=== PATIENT | female | born 1965 | race Caucasian/White ===

== ENCOUNTER 2017-04-06 14:30 | Emergency (ER) | payer OTHER ==
[~2017-04-06 14:30] MED LIST: B COTAB7 PO; CALC1TAB53 PO; CLON.5 PO; DICY10CA13 PO; DUONI NEB; HYDR-3533 PO; METH500T3 PO; MOBI7.5T PO; MULTCAP2 PO; OXYC1SOL5 PO; RANI150T PO; VENL37.5 PO; ZOFR8TAB PO
[2017-04-06 14:38] VITALS: BP 159/97; PULSE 99; RESP 24; TEMP 97.8; O2SAT 96
[2017-04-06] MEDS ORDERED: SODIUM CHLOR 0.9% 1000 ML INJ 1,000 ML IV SCH (14:55)
[2017-04-06] MEDS ORDERED: ONDANSETRON HCL 4 MG/2 ML VIAL IVP ONE (15:00)
[2017-04-06 15:01] VITALS: RESP 22; O2SAT 96
--- NOTE | 2017-04-06 15:28 | PD ---
HPI Chief Complaint: Cardiac Complaint Time Seen by Provider: 15:20 Travel History International Travel<30 days: No Contact w/Intl Traveler<30days: No Traveled to known affect area: No History of Present Illness HPI 51-year-old female that presents to the ED for evaluation of possible OD. Patient apparently was found unresponsive by bystanders. Ambulance and fire [facility] were called. Apparently they attempted to do an IV as well as started chest compressions because she wouldn't be responsive to them. Patient was arousable afterwards and became somewhat agitated so she had to be restrained. Patient states that she's been drinking a lot today and she was "hanging out with her girlfriends ". Per patient she was also smoking marijuana and she took all her medications as prescribed by her doctor. Per patient she was in the sun and she just fell asleep on the floor. Per patient she denies trying to kill herself. Per patient she drinks as much as she can. She denies any suicidal or homicidal ideation. She denies any other substance abuse. She states that she feels fine other than having some chronic pain states that is not changed from prior. She denies any chest pain or shortness of breath. She denies any fevers chills or sweats. No urinary or bowel movement issues. No vomiting. Per patient she needs is some fluids and for us to allow her to sleep it off. PFSH Past Medical History Asthma: Yes Autoimmune Disease: No Blood Disorders: No Anxiety: Yes Depression: No Heart Rhythm Problems: No Cancer: Yes (Cervical) Cardiovascular Problems: Yes (HX TACHYCARDIA) High Cholesterol: No Chemotherapy: No Chest Pain: No Congestive Heart Failure: No COPD: Yes Diabetes: No Diminished Hearing: No Diverticulitis: Yes Endocrine: No Gastrointestinal Disorders: Yes (DIVERTICULOSIS, IBS, GERD) Genitourinary: No Hepatitis: Yes (C) Hiatal Hernia: No Immune Disorder: No Implanted Vascular Access Dvce: Yes Musculoskeletal: Yes (ARTHRITIS, (RA & OA)) Neurologic: Yes (VERTIGO, BENIGN CEREBRAL MASS, HEADACHES, S/P HEAD TRAUMA) Psychiatric: Yes (PTSD) Reproductive: Yes (CERVICAL DYSPLASIA) Respiratory: Yes (ASTHMA COPD) Immunizations Current: Yes Radiation Therapy: No Sleep Apnea: No Thyroid Disease: No Tetanus Vaccination: < 5 Years Influenza Vaccination: No ?: Not Menopausal: Yes : 5 Para: 3 Miscarriage: 2 Ectopic : Yes (1988) Past Surgical History Abdominal Surgery: No AICD: No Body Medical Devices: HARDWARE RIGHT FOREARM Cardiac Surgery: No Ear Surgery: No Endocrine Surgery: No Eye Surgery: No Genitourinary Surgery: No Gynecologic Surgery: Yes (C SECTION, TUBAL LIG. CONE BIOPSY) Hysterectomy: Yes Joint Replacement: No Neurologic Surgery: No Oral Surgery: Yes (T & A) Pacemaker: No Thoracic Surgery: No Tonsillectomy: Yes Other Surgery: Yes (Cervix) Social History Alcohol Use: Yes (BEERS DAILY) Tobacco Use: Yes (11/10 PPD) Substance Use: Yes (WEEDS) Allergies-Medications (Allergen,Severity, Reaction): Coded Allergies: Lactose (Verified Allergy, Severe, GI SXS, 04/06/17) Paroxetine (Verified Allergy, Severe, SEVERES HEADACHES, 04/06/17) Paxil (Verified Allergy, Severe, HEADACHES, 04/06/17) Sertraline (Verified Allergy, Severe, SEVERE HEADACHES, 04/06/17) *MDRO Multi-Drug Resistant Organism (Verified Adverse Reaction, Unknown, ) MRSA (finger wound) - 2002, (Surveillance cx) - 2004, (foot wound) - 2005 Reported Meds & Prescriptions Reported Meds & Active Scripts Active Reported Effexor (Venlafaxine HCl) 37.5 Mg Tab 37.5 Mg PO DAILY Klonopin (Clonazepam) 0.5 Mg Tab 0.5 Mg PO DAILY Review of Systems Except as stated in HPI: all other systems reviewed are Neg Physical Exam Narrative GENERAL: SKIN: Warm and dry. HEAD: Atraumatic. Normocephalic. EYES: Pupils equal and round. No scleral icterus. No injection or drainage. ENT: No nasal bleeding or discharge. Mucous membranes pink and moist. tongue is midline. No uvula deviation. NECK: Trachea midline. No JVD. CARDIOVASCULAR: Regular rate and rhythm. No murmurs, S3, S4. RESPIRATORY: No accessory muscle use. Clear to auscultation. Breath sounds equal bilaterally. GASTROINTESTINAL: Abdomen soft, non-tender, nondistended. Hepatic and splenic margins not palpable. MUSCULOSKELETAL: Extremities without clubbing, cyanosis, or edema. No obvious deformities. Full ROM of the upper and lower extremities. 2+ pulses. NEUROLOGICAL: Awake and alert. No obvious cranial nerve deficits. Motor grossly within normal limits. Five out of 5 muscle strength in the arms and legs. Normal speech. PSYCHIATRIC: Intoxicated mood and affect; insight and judgment normal. Data Data Last Documented VS Vital Signs Date Time Temp Pulse Resp B/P Pulse Ox O2 Delivery O2 Flow Rate FiO2 04/06/17 16:00 89 18 158/86 97 Room Air 04/06/17 14:38 97.8 Orders Electrocardiogram (04/06/17 ) Complete Blood Count With Diff (04/06/17 14:55) Comprehensive Metabolic Panel (04/06/17 14:55) Urinalysis - C+S If Indicated (04/06/17 14:55) Iv Access Insert/Monitor (04/06/17 14:55) Ecg Monitoring (04/06/17 14:55) Oximetry (04/06/17 14:55) Ondansetron Inj (Zofran Inj) (04/06/17 15:00) Sodium Chlor 0.9% 1000 Ml Inj (Ns 1000 M (04/06/17 14:55) Drug Screen, Random Urine (04/06/17 14:55) Alcohol (Ethanol) (04/06/17 14:55) Salicylates (Aspirin) (04/06/17 14:55) Tylenol (Acetaminophen) (04/06/17 14:55) Ed Urine Pregnancytest Poc (04/06/17 14:55) Troponin I (04/06/17 14:55) Chest, Single Ap (04/06/17 ) Creatine Kinase (Cpk) (04/06/17 16:24) Ct Brain W/O Iv Contrast(Rout) (04/06/17 ) Labs Laboratory Tests Test 04/06/17 15:00 White Blood Count 6.4 TH/MM3 Red Blood Count 3.81 MIL/MM3 Hemoglobin 13.2 GM/DL Hematocrit 38.4 % Mean Corpuscular Volume 100.9 FL Mean Corpuscular Hemoglobin 34.5 PG Mean Corpuscular Hemoglobin 34.2 % Concent Red Cell Distribution Width 13.3 % Platelet Count 149 TH/MM3 Mean Platelet Volume 9.7 FL Neutrophils (%) (Auto) 66.7 % Lymphocytes (%) (Auto) 22.4 % Monocytes (%) (Auto) 8.2 % Eosinophils (%) (Auto) 2.3 % Basophils (%) (Auto) 0.4 % Neutrophils # (Auto) 4.3 TH/MM3 Lymphocytes # (Auto) 1.4 TH/MM3 Monocytes # (Auto) 0.5 TH/MM3 Eosinophils # (Auto) 0.1 TH/MM3 Basophils # (Auto) 0.0 TH/MM3 CBC Comment DIFF FINAL Differential Comment Sodium Level 138 MEQ/L Potassium Level 4.4 MEQ/L Chloride Level 102 MEQ/L Carbon Dioxide Level 29.8 MEQ/L Anion Gap 6 MEQ/L Blood Urea Nitrogen 7 MG/DL Creatinine 0.57 MG/DL Estimat Glomerular Filtration 112 ML/MIN Rate Random Glucose 155 MG/DL Calcium Level 8.3 MG/DL Total Bilirubin 0.2 MG/DL Aspartate Amino Transf 34 U/L (AST/SGOT) Alanine Aminotransferase 27 U/L (ALT/SGPT) Alkaline Phosphatase 98 U/L Total Creatine Kinase 99 U/L Troponin I LESS THAN 0.02 NG/ML Total Protein 7.2 GM/DL Albumin 3.5 GM/DL Salicylates Level 4.2 MG/DL Acetaminophen Level LESS THAN 2.0 MCG/ML Ethyl Alcohol Level LESS THAN 3 MG/DL MDM Medical Decision Making Medical Screen Exam Complete: Yes Emergency Medical Condition: Yes Medical Record Reviewed: Yes Interpretation(s) CBC & BMP Diagram 04/06/17 15:00 tox negative troponin and CK negative EKG shows sinus rhythm with no sign of acute ischemia or arrhythmia. Last Impressions Chest X-Ray 04/06/17 0000 Signed Impressions: Service Date/Time: Thursday, April 06, 2017 15:00 - CONCLUSION: No acute disease. Isaiah Pickard MD Differential Diagnosis Alcohol intoxication versus substance abuse versus OD versus chest pain Narrative Course 51-year-old female that presents to the ED for evaluation of possible OD. Patient was properly examined and was found to have signs and symptoms consistent with appears to be acute intoxication. No sign of acute medical distress. Patient states that she did not do this in an attempt to hurt herself. Per patient she did drink a lot of alcohol today as well as marijuana and was on the sun all day. Per patient she feels dehydrated. At this time had recommend labs and imaging. Patient was given IV fluids and Zofran. Labs and imaging showed no sign of acute disease. I was informed by ED nurse that patient did not want to do a CAT scan of the head as well as and did not want to give us a urine sample. Patient also wants to leave after being here for 2 hours. Patient does appear to be sober and symptoms to be capable of making her own decisions. At this time I will have the patient sign out AMA. AMA: The risks of leaving against medical advice without further evaluation treatment were discussed with the patient. These risks include cardiac dysfunction, cardiac dysrhythmia, possible heart attack, possible stroke or . The patient indicated understanding of these risks and appeared to have the capacity to make this decision. Diagnosis Primary Impression: Intoxication by drug Qualified Code: F19.929 - Intoxication by drug, with unspecified complication Patient Instructions: General Instructions Additional Instructions: Follow with PCP. See ED worsening symptoms. Stop abusing alcohol. Med/Other Pt SpecificInfo: No Change to Meds Disposition: 07 AGAINST MEDICAL ADVICE Condition: Stable Stephen Mane April 06, 2017 15:28
[2017-04-06] MEDS ORDERED: CLON.5 PO (15:32)
[2017-04-06] MEDS ORDERED: VENL37.5 PO (15:32)
[2017-04-06 15:37] LABS: AUTOMATED NEUTROPHIL # 4.3 TH/MM3 (1.8-7.7); BASOPHIL % 0.4 % (0.0-2.0); EOSINOPHIL # 0.1 TH/MM3 (0-0.4); EOSINOPHIL % 2.3 % (0.0-4.0); HEMATOCRIT 38.4 % (35.0-46.0); HEMO FLAGS DIFF FINAL; LYMPH % 22.4 % (9.0-44.0); LYMPHOCYTE # 1.4 TH/MM3 (1.0-4.8); MEAN CELL VOLUME 100.9 FL (80.0-100.0); MEAN CORPUSCULAR HEMOGLOBIN 34.5 PG (27.0-34.0); MEAN CORPUSCULAR HGB CONC 34.2 % (32.0-36.0); MONO % 8.2 % (0.0-8.0); NEUT % 66.7 % (16.0-70.0); PLATELET COUNT 149 TH/MM3 (150-450); RED BLOOD COUNT 3.81 MIL/MM3 (4.00-5.30); RED CELL DISTRIBUTION WIDTH 13.3 % (11.6-17.2); WHITE BLOOD COUNT 6.4 TH/MM3 (4.0-11.0)
--- NOTE | 2017-04-06 15:40 | RADRPT ---
EXAM DATE/TIME: 04/06/2017 15:00 [facility] COMPARISON: CHEST SINGLE AP, November 19, 2014, 15:10. INDICATIONS : Chest pain. MEDICAL HISTORY : Chronic obstructive pulmonary disease. SURGICAL HISTORY : Hysterectomy. ENCOUNTER: Initial ACUITY: 1 day PAIN SCORE: 5/10 LOCATION: Bilateral chest FINDINGS: A single view of the chest demonstrates the lungs to be symmetrically aerated without evidence of mas s, infiltrate or effusion. The cardiomediastinal contours are unremarkable. Osseous structures are intact. CONCLUSION: No acute disease. Isaiah Pickard MD on April 06, 2017 at 15:38 Board Certified Radiologist. This report was verified electronically.
[2017-04-06 16:00] VITALS: BP 158/86; PULSE 89; RESP 18; O2SAT 97
[2017-04-06 16:02] LABS: ACETAMINOPHEN LESS THAN 2.0 MCG/ML (10.0-30.0); ALKALINE PHOSPHATASE 98 U/L (45-117); TOTAL BILIRUBIN ADULT 0.2 MG/DL (0.2-1.0)
[2017-04-06 16:03] LABS: ALT (GPT) 27 U/L (10-53); ANION GAP 6 MEQ/L (5-15); AST (GOT) 34 U/L (15-37); BICARBONATE 29.8 MEQ/L (21.0-32.0); BLOOD UREA NITROGEN 7 MG/DL (7-18); CHLORIDE 102 MEQ/L (98-107); GLOMERULAR FILTRATION RATE 112 ML/MIN (>89); POTASSIUM 4.4 MEQ/L (3.5-5.1); SODIUM (NA) 138 MEQ/L (136-145)
--- NOTE | 2017-04-06 17:47 | PD ---
Data Data Last Documented VS Vital Signs Date Time Temp Pulse Resp B/P Pulse Ox O2 Delivery O2 Flow Rate FiO2 04/06/17 16:00 89 18 158/86 97 Room Air 04/06/17 14:38 97.8 Orders Electrocardiogram (04/06/17 ) Complete Blood Count With Diff (04/06/17 14:55) Comprehensive Metabolic Panel (04/06/17 14:55) Urinalysis - C+S If Indicated (04/06/17 14:55) Iv Access Insert/Monitor (04/06/17 14:55) Ecg Monitoring (04/06/17 14:55) Oximetry (04/06/17 14:55) Ondansetron Inj (Zofran Inj) (04/06/17 15:00) Sodium Chlor 0.9% 1000 Ml Inj (Ns 1000 M (04/06/17 14:55) Drug Screen, Random Urine (04/06/17 14:55) Alcohol (Ethanol) (04/06/17 14:55) Salicylates (Aspirin) (04/06/17 14:55) Tylenol (Acetaminophen) (04/06/17 14:55) Ed Urine Pregnancytest Poc (04/06/17 14:55) Troponin I (04/06/17 14:55) Chest, Single Ap (04/06/17 ) Creatine Kinase (Cpk) (04/06/17 16:24) Ct Brain W/O Iv Contrast(Rout) (04/06/17 ) Labs Laboratory Tests Test 04/06/17 15:00 White Blood Count 6.4 TH/MM3 Red Blood Count 3.81 MIL/MM3 Hemoglobin 13.2 GM/DL Hematocrit 38.4 % Mean Corpuscular Volume 100.9 FL Mean Corpuscular Hemoglobin 34.5 PG Mean Corpuscular Hemoglobin 34.2 % Concent Red Cell Distribution Width 13.3 % Platelet Count 149 TH/MM3 Mean Platelet Volume 9.7 FL Neutrophils (%) (Auto) 66.7 % Lymphocytes (%) (Auto) 22.4 % Monocytes (%) (Auto) 8.2 % Eosinophils (%) (Auto) 2.3 % Basophils (%) (Auto) 0.4 % Neutrophils # (Auto) 4.3 TH/MM3 Lymphocytes # (Auto) 1.4 TH/MM3 Monocytes # (Auto) 0.5 TH/MM3 Eosinophils # (Auto) 0.1 TH/MM3 Basophils # (Auto) 0.0 TH/MM3 CBC Comment DIFF FINAL Differential Comment Sodium Level 138 MEQ/L Potassium Level 4.4 MEQ/L Chloride Level 102 MEQ/L Carbon Dioxide Level 29.8 MEQ/L Anion Gap 6 MEQ/L Blood Urea Nitrogen 7 MG/DL Creatinine 0.57 MG/DL Estimat Glomerular Filtration 112 ML/MIN Rate Random Glucose 155 MG/DL Calcium Level 8.3 MG/DL Total Bilirubin 0.2 MG/DL Aspartate Amino Transf 34 U/L (AST/SGOT) Alanine Aminotransferase 27 U/L (ALT/SGPT) Alkaline Phosphatase 98 U/L Total Creatine Kinase 99 U/L Troponin I LESS THAN 0.02 NG/ML Total Protein 7.2 GM/DL Albumin 3.5 GM/DL Salicylates Level 4.2 MG/DL Acetaminophen Level LESS THAN 2.0 MCG/ML Ethyl Alcohol Level LESS THAN 3 MG/DL MDM Supervised Visit with DAMI: Yes Narrative Course The history, exam, and medical decision-making in the associated midlevel provider note were completed with my assistance. I reviewed and agree with the findings presented. I attest that I had a [id number] encounter with the patient on the same day, and personally performed and documented my assessment and findings in the medical record. *My assessment and Findings: This is a 51-year-old female who presents to the emergency department having been brought in under a suspected overdose. Here she's become increasingly clear. We did recommend her getting a CT scan to evaluate for possible intracranial hemorrhage given the circumstances of her being found her on clear. Patient refuses. She seems to have decision-making capacity and I don't think we can hold her against her will. Patient was discharged. Keiko Matthews MD April 06, 2017 17:47
--- NOTE | 2017-04-07 08:23 | EKG ---
Date Performed: 04/06/2017 Time Performed: 15:05:59 PTAGE: 51 years EKG: Sinus rhythm NORMAL ECG PREVIOUS TRACING : 11/30/2015 11.57 No significant change from previous tracing noted. DOCTOR: Anson Johnson Interpretating Date/Time 04/07/2017 08:22:38
== END 2017-04-06 17:45 | disposition left against medical advice (07) ==
LOC: NEPE 14:30
DX: F19.929 Other psychoactive substance use, unspecified with intoxication, unspecified (principal); F12.90 Cannabis use, unspecified, uncomplicated; F10.10 Alcohol abuse, uncomplicated; F17.200 Nicotine dependence, unspecified, uncomplicated; J44.9 Chronic obstructive pulmonary disease, unspecified; J45.909 Unspecified asthma, uncomplicated; R07.9 Chest pain, unspecified; Y90.0 Blood alcohol level of less than 20 mg/100 ml; Z79.899 Other long term (current) drug therapy; Z85.41 Personal history of malignant neoplasm of cervix uteri
CPT/HCPCS: 71010; 80053; 80307; 82550; 84484; 85025; 93005; 96361; 96374; 99285; J2405; J7030

== ENCOUNTER 2017-06-16 16:05 | Emergency (ER) | payer OTHER ==
[~2017-06-16] VITALS: Ht 162.6 cm; Wt 47.0 kg
[~2017-06-16 16:05] MED LIST changes: -B COTAB7 PO; -CALC1TAB53 PO; -DICY10CA13 PO; -DUONI NEB; -HYDR-3533 PO; -METH500T3 PO; -MOBI7.5T PO; -MULTCAP2 PO; -OXYC1SOL5 PO; -RANI150T PO; -ZOFR8TAB PO
[2017-06-16 16:28] VITALS: BP 116/72; PULSE 98; RESP 16; TEMP 98.7; O2SAT 97
[2017-06-16 16:31] VITALS: BP 116/72; PULSE 98; RESP 16; TEMP 98.7; O2SAT 97
--- NOTE | 2017-06-16 18:46 | PD ---
HPI Chief Complaint: OD/ Ingestion Time Seen by Provider: 16:34 Travel History International Travel<30 days: No Contact w/Intl Traveler<30days: No Traveled to known affect area: No History of Present Illness HPI This is a 51-year-old female who presents to the emergency department having used IV heroin recreationally and overdose. EMS came about 0.4 Narcan and she woke up. Currently patient feels back to normal and wants to leave. She says she used heroin because she has pain in her legs from where she scraped her legs on oyster beds. She was not trying to kill her self, she enjoys living, and is future oriented. She is given a try to move in with a friend of hers who doesn't use drugs to try to get clean. PFSH Past Medical History Asthma: Yes Autoimmune Disease: No Blood Disorders: No Anxiety: Yes Depression: No Heart Rhythm Problems: No Cancer: Yes (Cervical) Cardiovascular Problems: Yes (HX TACHYCARDIA) High Cholesterol: No Chemotherapy: No Chest Pain: No Congestive Heart Failure: No COPD: Yes Diabetes: No Diminished Hearing: No Diverticulitis: Yes Endocrine: No Gastrointestinal Disorders: Yes (DIVERTICULOSIS, IBS, GERD) Genitourinary: No Hepatitis: Yes (C) Hiatal Hernia: No Immune Disorder: No Implanted Vascular Access Dvce: Yes Musculoskeletal: Yes (ARTHRITIS, (RA & OA)) Neurologic: Yes (VERTIGO, BENIGN CEREBRAL MASS, HEADACHES, S/P HEAD TRAUMA) Psychiatric: Yes (PTSD) Reproductive: Yes (CERVICAL DYSPLASIA) Respiratory: Yes (ASTHMA COPD) Immunizations Current: Yes Radiation Therapy: No Sleep Apnea: No Thyroid Disease: No Tetanus Vaccination: > 5 Years Influenza Vaccination: No ?: Not Menopausal: Yes : 5 Para: 3 Miscarriage: 2 Ectopic : Yes (1988) Past Surgical History Abdominal Surgery: No AICD: No Body Medical Devices: HARDWARE RIGHT FOREARM Cardiac Surgery: No Ear Surgery: No Endocrine Surgery: No Eye Surgery: No Genitourinary Surgery: No Gynecologic Surgery: Yes (C SECTION, TUBAL LIG. CONE BIOPSY) Hysterectomy: Yes Joint Replacement: No Neurologic Surgery: No Oral Surgery: Yes (T & A) Pacemaker: No Thoracic Surgery: No Tonsillectomy: Yes Other Surgery: Yes (Cervix) Social History Alcohol Use: Yes (BEERS DAILY) Tobacco Use: Yes (1/2 PPD) Substance Use: Yes (WEED, OPIATES) Allergies-Medications (Allergen,Severity, Reaction): Coded Allergies: Lactose (Verified Allergy, Severe, GI SXS, 04/06/17) Paroxetine (Verified Allergy, Severe, SEVERES HEADACHES, 04/06/17) Paxil (Verified Allergy, Severe, HEADACHES, 04/06/17) Sertraline (Verified Allergy, Severe, SEVERE HEADACHES, 04/06/17) *MDRO Multi-Drug Resistant Organism (Verified Adverse Reaction, Unknown, ) MRSA (finger wound) - 2002, (Surveillance cx) - 2004, (foot wound) - 2005 Reported Meds & Prescriptions Reported Meds & Active Scripts Active Reported Effexor (Venlafaxine HCl) 37.5 Mg Tab 37.5 Mg PO DAILY Klonopin (Clonazepam) 0.5 Mg Tab 0.5 Mg PO DAILY Review of Systems Except as stated in HPI: all other systems reviewed are Neg Physical Exam Narrative GENERAL:Chronically unwell appearing female, thin SKIN: Scattered Ulcerations on the lower extremities with some purulent drainage and surrounding erythema. HEAD: Atraumatic. Normocephalic. EYES: Pupils equal and round. No injection or drainage. ENT: Moist mucous membranes NECK: Trachea midline. CARDIOVASCULAR: Regular rate and rhythm. No murmur appreciated. RESPIRATORY: Clear to auscultation. Breath sounds equal bilaterally. GASTROINTESTINAL: Abdomen soft, non-tender, nondistended. MUSCULOSKELETAL: No obvious deformities. NEUROLOGICAL: Awake and alert. No obvious cranial nerve deficits. Moving all extremities. PSYCHIATRIC: Appropriate mood and affect; insight and judgment normal. Data Data Last Documented VS Vital Signs Date Time Temp Pulse Resp B/P Pulse Ox O2 Delivery O2 Flow Rate FiO2 06/16/17 16:31 87 16 97 Room Air 06/16/17 16:31 98.7 116/72 MDM Medical Decision Making Medical Screen Exam Complete: Yes Emergency Medical Condition: Yes Interpretation(s) afebrile, mild tachycardia, normotensive Differential Diagnosis Heroin overdose, recreational overdose, intentional overdose, depression, adjustment reaction Narrative Course This is a 51-year-old female who abuses drugs. She presents to the emergency department having had a recreational heroin overdose for which she received Narcan in the field. She was observed for several hours in the emergency department and continues to appear well without further intervention required. I don't think she meets Beavers act criteria. She says she wasn't trying to kill her self she was just recreationally using heroin. She is future oriented, plans to move in with a friend who doesn't use drugs later today, and says she' s not depressed. I don't think I can keep her against her will as she has decision-making capacity and is not a harm to herself or others minimally. Beavers act was lifted. Patient does have ulcerations on her legs which will be treated with doxycycline. Diagnosis Primary Impression: Intentional heroin overdose Qualified Code: T40.1X2A - Intentional heroin overdose, initial encounter Patient Instructions: General Instructions Additional Instructions: Follow up with Fina Myers in regards to psychiatric or substance related issues at: [address] [place] [address] Med/Other Pt SpecificInfo: No Change to Meds Disposition: 01 DISCHARGE HOME Condition: Stable Keiko Matthews MD Jun 16, 2017 18:46
[2017-06-16] MEDS ORDERED: DOXY100C PO (18:57)
[2017-06-16 19:06] VITALS: BP 123/78; PULSE 91; RESP 16; TEMP 98.7; O2SAT 97
== END 2017-06-16 19:07 | disposition home or self-care (01) ==
LOC: NEPE 16:05
DX: T40.1X1A Poisoning by heroin, accidental (unintentional), initial encounter (principal); F11.10 Opioid abuse, uncomplicated; F12.10 Cannabis abuse, uncomplicated; F10.10 Alcohol abuse, uncomplicated; F17.290 Nicotine dependence, other tobacco product, uncomplicated; J44.9 Chronic obstructive pulmonary disease, unspecified
CPT/HCPCS: 99283